=== PATIENT | male | born 1970 | race Caucasian/White ===

== ENCOUNTER 2023-02-06 06:59 | Day surgery (SDC) | payer OTHER ==
[2023-02-04 10:01] VITALS: BP 128/84; PULSE 68; RESP 16
[2023-02-04 10:24] LABS: BASOPHILS % (AUTO) 0.4 % (0.0-5.0); EOSINOPHILS % (AUTO) 1.1 % (0.0-8.0); HEMATOCRIT 48.4 % (42-54); MEAN CORPUSCULAR HEMOGLOBIN 30.2 pg (27.0-33.0); MEAN CORPUSCULAR HGB CONC 35.5 g/dL (32.0-36.0); MEAN CORPUSCULAR VOLUME 84.9 fL (79-99); MONOCYTES % (AUTO) 7.8 % (3.0-13.0); NEUTROPHILS % (AUTO) 50.4 % (40.0-77.0); PLATELET COUNT (AUTO) 242 K/uL (130-400); RED CELL DISTRIBUTION WIDTH 13.7 % (11.0-15.5)
[2023-02-04 10:32] LABS: POTASSIUM 4.2 mmol/L (3.5-5.1)
[2023-02-06] VITALS (18 sets, daily range): BP systolic 110–141; BP diastolic 62–86; PULSE 50–86; RESP 12–18
[~2023-02-06] VITALS: Ht 170.2 cm; Wt 74.5 kg
[~2023-02-06 06:59] MED LIST: FLUO20CA30 PO; LORA-192 PO
[2023-02-06] MEDS ORDERED: CEFAZOLIN SODIUM 2 GM VIAL ONE (07:46)
[2023-02-06] MEDS ORDERED: LACTATED RINGERS 1000ML 1,000 ML IV ONE (07:47)
[2023-02-06] MEDS ORDERED: MIDAZOLAM HCL 1 MG/ML 2ML VIAL ONE (07:54)
[2023-02-06] MEDS ORDERED: LIDOCAINE PF 100MG/5ML (2%) SYRINGE 5ML ONE (07:54)
[2023-02-06] MEDS ORDERED: PROPOFOL 10 MG/ML 20ML VIAL IV ONE (07:54)
[2023-02-06] MEDS ORDERED: ROCURONIUM 10MG/1ML SYR 10 MG/ML ML ONE (07:55)
[2023-02-06] MEDS ORDERED: FENTANYL CITRATE PF 50 MCG/1 ML 5ML AMP IV ONE (07:55)
[2023-02-06] MEDS ORDERED: DEXAMETHASONE SOD PHOSPHATE 4 MG/ML 1ML VIAL ONE (08:40)
[2023-02-06] MEDS ORDERED: ONDANSETRON 4MG INJ ONE (08:40)
[2023-02-06] MEDS ORDERED: EPHEDRINE SULFATE 50 MG/ML AMPULE ONE (08:43)
[2023-02-06] MEDS ORDERED: CEFAZOLIN SODIUM 2 GM VIAL IVPB ONE (08:53)
[2023-02-06] MEDS ORDERED: BUPIVACAINE/PF 0.25% 30ML VIAL IJ ONE (09:16)
[2023-02-06] MEDS ORDERED: GLYCOPYRROLATE 1 MG/5 ML SYRINGE ONE (09:26)
[2023-02-06] MEDS ORDERED: NEOSTIGMINE 5MG/5ML SYR IV ONE (09:27)
== END 2023-02-06 11:20 | disposition home or self-care (01) ==
LOC: DAH 06:59
PROVIDERS: ATTEND Surgery
DX: D17.0 Benign lipomatous neoplasm of skin and subcutaneous tissue of head, face and neck (principal); F41.9 Anxiety disorder, unspecified; M19.90 Unspecified osteoarthritis, unspecified site; Z20.822 Contact with and (suspected) exposure to COVID-19; Z88.8 Allergy status to other drugs, medicaments and biological substances; Z79.899 Other long term (current) drug therapy; Z98.890 Other specified postprocedural states
CPT/HCPCS: 80048; 85025; 87426; 36415; 21552; A6260; J1100; A4663; A4452; J7120; J3010; J3490 ×3; J2710; J2001; J2250; J2704; J2405; J0690 ×2; A4930 ×2; A4215; A4223; A4222; A4221